=== PATIENT | female | born 1960 | race Caucasian/White ===

== ENCOUNTER 2017-02-24 06:12 | Day surgery (SDC) | payer OTHER ==
[~2017-02-24] VITALS: Ht 170.2 cm; Wt 105.0 kg
[2017-02-24] MEDS ORDERED: BUPIVACAINE/PF 0.5% ONE ×2 (06:23→09:33)
[2017-02-24] MEDS ORDERED: methylPREDNISolone *ACETATE* 40 MG/ML ONE ×2 (06:23→06:41)
[2017-02-24] MEDS ORDERED: ATOR80TA75 PO (06:46)
[2017-02-24] MEDS ORDERED: OMEG100023 PO (06:46)
[2017-02-24] MEDS ORDERED: LACTATED RINGERS 1,000 ML IV SCH (06:46)
[2017-02-24] MEDS ORDERED: CALC1CAP8 PO (06:46)
[2017-02-24] MEDS ORDERED: ATEN50TA41 PO (06:46)
[2017-02-24] MEDS ORDERED: LACT1TAB3 PO (06:46)
[2017-02-24] MEDS ORDERED: magnesium PO (06:46)
[2017-02-24] MEDS ORDERED: CHOL20003 PO (06:46)
[2017-02-24] MEDS ORDERED: VITA150T PO (06:46)
[2017-02-24 06:47] VITALS: BP 123/85
[2017-02-24] MEDS ORDERED: MIDAZOLAM 1 MG/ML, 2ML ONE (06:47)
[2017-02-24] MEDS ORDERED: FENTANYL PF 100 MCG/2ML ONE (06:47)
[2017-02-24] MEDS ORDERED: LABETALOL 5MG/ML, 20ML IV PRN (07:30)
[2017-02-24] MEDS ORDERED: EPHEDRINE 50 MG/ML, 1ML IVPush PRN (07:30)
[2017-02-24] MEDS ORDERED: FENTANYL PF 100 MCG/2ML IV PRN (07:30)
[2017-02-24] MEDS ORDERED: ALBUTEROL SULFATE 2.5 MG/3 ML NPPB PRN (07:30)
[2017-02-24] MEDS ORDERED: hydrALAzine 20 MG/ML, 1ML IV PRN (07:30)
[2017-02-24] MEDS ORDERED: METOPROLOL 1 MG/ML, 5ML IV PRN (07:30)
[2017-02-24] MEDS ORDERED: ONDANSETRON 2MG/ML, 2ML IVPush PRN (07:30)
[2017-02-24] MEDS ORDERED: ACETAMINOPHEN 325 MG TABLET PO PRN (07:30)
[2017-02-24] MEDS ORDERED: OXYcodone 5 MG/5 ML ORAL.SOL UDC PO PRN (07:30)
[2017-02-24] MEDS ORDERED: KETOROLAC 30 MG/1 ML ONE (15:51)
[2017-02-24] MEDS ORDERED: PROPOFOL 10 MG/ML, 20ML ONE (15:51)
== END 2017-02-24 08:25 | disposition home or self-care (01) ==
LOC: OUT 06:12
PROVIDERS: ATTEND Orthopaedic Surgery
DX: M16.11 Unilateral primary osteoarthritis, right hip (principal); I10 Essential (primary) hypertension; Z96.642 Presence of left artificial hip joint; Z98.42 Cataract extraction status, left eye; Z98.41 Cataract extraction status, right eye; Z96.1 Presence of intraocular lens; Z72.89 Other problems related to lifestyle; Z88.0 Allergy status to penicillin; Z91.048 Other nonmedicinal substance allergy status; Z90.49 Acquired absence of other specified parts of digestive tract; E78.00 Pure hypercholesterolemia, unspecified
CPT/HCPCS: 20610; 73501; 77002; J1030; J1885; J2250; J2704; J3490; J7120; 76000; J3010

== ENCOUNTER 2017-10-13 09:04 | Inpatient (IN) | payer OTHER ==
[~2017-10-13] VITALS: Ht 170.2 cm; Wt 104.5 kg
[~2017-10-13 09:04] MED LIST: ATEN50TA41 PO; ATOR-2 PO; CALC1CAP8 PO; CHOL2000 PO; CYAN1TAB29 PO; LACT1CAP35 PO; LACT1TAB3 PO; MAGN400T7 PO; OMEG100023 PO; VITA150T PO; magnesium PO
[2017-10-13] MEDS ORDERED: VANCOMYCIN PER PHARMACY MC STA (09:36)
[2017-10-13] MEDS ORDERED: LACTATED RINGERS 1,000 ML IV SCH (09:47)
[2017-10-13] MEDS ORDERED: VANCOMYCIN 1,800 MG in SODIUM CHLORIDE 0.9% 250 ML IV SCH (10:00)
[2017-10-13] MEDS ORDERED: SCOPOLAMINE 1MG PATCH TD ONE (10:00)
[2017-10-13 10:26] VITALS: BP 109/72
[2017-10-13] MEDS ORDERED: ONDANSETRON 2MG/ML, 2ML ONE (11:18)
[2017-10-13] MEDS ORDERED: PROPOFOL 10 MG/ML, 20ML ONE (11:18)
[2017-10-13] MEDS ORDERED: NEOSTIGMINE 1 MG/ML, 10ML ONE (11:18)
[2017-10-13] MEDS ORDERED: CEFAZOLIN 1,000 MG ONE (11:18)
[2017-10-13] MEDS ORDERED: MIDAZOLAM 1 MG/ML, 2ML ONE (11:18)
[2017-10-13] MEDS ORDERED: PHENYLEPHRINE 10 MG/ML ONE (11:18)
[2017-10-13] MEDS ORDERED: SUCCINYLCHOLINE 20 MG/ML, 10ML ONE (11:18)
[2017-10-13] MEDS ORDERED: DEXAMETHASONE 4 MG/ML, 1ML ONE (11:18)
[2017-10-13] MEDS ORDERED: GLYCOPYRROLATE 0.2MG/1ML, 5ML ONE (11:18)
[2017-10-13] MEDS ORDERED: ROCURONIUM 10 MG/ML,10ML ONE (11:18)
[2017-10-13] MEDS ORDERED: MEPERIDINE/PF 25MG/0.5ML IVPush PRN (12:30)
[2017-10-13] MEDS ORDERED: ACETAMINOPHEN 325 MG TABLET PO PRN (12:30)
[2017-10-13] MEDS ORDERED: ONDANSETRON 2MG/ML, 2ML IVPush PRN (12:30)
[2017-10-13] MEDS ORDERED: PROMETHAZINE 25 MG/ML, 1ML IV PRN (12:30)
[2017-10-13] MEDS ORDERED: OXYcodone 5 MG/5 ML ORAL.SOL UDC PO PRN (12:30)
[2017-10-13] MEDS ORDERED: FENTANYL PF 100 MCG/2ML IV PRN (12:30)
[2017-10-13] MEDS ORDERED: DIAZEPAM 5 MG/ML, 2ML IVPush PRN (12:30)
[2017-10-13] MEDS ORDERED: ALBUTEROL SULFATE 2.5 MG/3 ML NPPB PRN (12:30)
[2017-10-13] MEDS ORDERED: hydrALAzine 20 MG/ML, 1ML IV PRN (12:30)
[2017-10-13] MEDS ORDERED: MIDAZOLAM 1 MG/ML, 2ML IV PRN (12:30)
[2017-10-13] MEDS ORDERED: HYDROcodone/APAP 7.5-325MG/15ML UDC PO PRN (12:30)
[2017-10-13] MEDS ORDERED: EPHEDRINE 50 MG/ML, 1ML IVPush PRN (12:30)
[2017-10-13] MEDS ORDERED: METOPROLOL 1 MG/ML, 5ML IV PRN (12:30)
[2017-10-13] MEDS ORDERED: HYDROmorphone 1 MG/ML, 1ML IV PRN ×2 (12:30→13:30)
[2017-10-13] MEDS ORDERED: LABETALOL 5MG/ML, 20ML IV PRN (12:30)
[2017-10-13] MEDS ORDERED: ACETAMINOPHEN 650 MG/20.3 ML UDC PO PRN (13:30)
[2017-10-13] MEDS ORDERED: ONDANSETRON 2MG/ML, 2ML IV PRN (13:30)
[2017-10-13] MEDS ORDERED: SENNA/DOCUSATE TABLET PO PRN (13:30)
[2017-10-13] MEDS ORDERED: ALUMINUM/MAG/SIMETHICONE 30 ML UDC PO PRN (13:30)
[2017-10-13] MEDS ORDERED: MAGNESIUM HYDROXIDE 8%, 30ML UDC PO PRN (13:30)
[2017-10-13] MEDS ORDERED: BISACODYL 10 MG SUPP PR PRN (13:30)
[2017-10-13] MEDS: D5%-0.45NACL+KCL 20MEQ 1,000 ML IV SCH ×2 (15:09→22:30)
[2017-10-13 19:16] VITALS: BP 122/68
[2017-10-13] MEDS: DOCUSATE 100 MG CAPSULE PO SCH (20:18)
[2017-10-13] MEDS: OXYcodone IR 5MG TABLET PO PRN ×2 (20:18→21:22)
[2017-10-13] MEDS ORDERED: ATORVASTATIN 80 MG TABLET PO SCH (21:00)
[2017-10-13] MEDS ORDERED: ATENOLOL 50 MG TABLET PO SCH (21:00)
[2017-10-13] MEDS: CEFAZOLIN PMX 2GM/50ML 50 ML IVPB SCH (22:30)
[2017-10-13 23:46] VITALS: BP 96/55
[2017-10-14 03:54] VITALS: BP 103/59
[2017-10-14] MEDS: OXYcodone IR 5MG TABLET PO PRN ×2 (06:29→10:39)
[2017-10-14] MEDS: CEFAZOLIN PMX 2GM/50ML 50 ML IVPB SCH (06:29)
[2017-10-14] MEDS: D5%-0.45NACL+KCL 20MEQ 1,000 ML IV SCH (08:05)
[2017-10-14] MEDS: DOCUSATE 100 MG CAPSULE PO SCH (08:28)
[2017-10-14 08:43] VITALS: BP 96/52
[2017-10-14] MEDS ORDERED: DOCU-131 PO (08:51)
[2017-10-14] MEDS ORDERED: HYDR-3240 PO (08:51)
[2017-10-14] MEDS ORDERED: ASPI-650 PO (08:52)
[2017-10-14] MEDS ORDERED: MULTIVITAMINS/MINERALS TABLET PO SCH (09:00)
[2017-10-14 10:40] VITALS: BP 98/52
[2017-10-14] MEDS ORDERED: ASPIRIN 325 MG TABLET EC PO SCH (18:00)
== END 2017-10-14 11:10 | disposition home or self-care (01) | DRG 470 ==
LOC: ORIP 09:04 → 4NOR 17:05 → DCLOUNGE 10-14 10:56
PROVIDERS: ADMIT Orthopaedic Surgery; ATTEND Orthopaedic Surgery
PROC: 0SR906A Replacement of Right Hip Joint with Oxidized Zirconium on Polyethylene Synthetic Substitute, Uncemented, Open Approach (ICD-10-PCS; principal; 2017-10-13 11:30)
DX: M16.11 Unilateral primary osteoarthritis, right hip (principal); Z96.642 Presence of left artificial hip joint
CPT/HCPCS: 36415; 72170; 86850; 86900; C1713; J0690; J1100; J2250; J2405; J2704; J2710; J3370; J3490; C1776; J0330; J2370; J3480; J7050; J7120

== ENCOUNTER → 2020-01-17 | Outpatient (CLI) | payer OTHER ==
[~2020-01-17] MED LIST changes: +ASPI-650 PO; +DOCU-131 PO; +HYDR-3240 PO; -MAGN400T7 PO; +MAGN400T9 PO
== END | disposition home or self-care (01) ==
LOC: CFH 14:43
PROVIDERS: ATTEND Internal Medicine
DX: Z12.31 Encounter for screening mammogram for malignant neoplasm of breast (principal); Z86.79 Personal history of other diseases of the circulatory system
CPT/HCPCS: 77067